=== PATIENT | male | born 1990 | race Hispanic/Latino ===

== ENCOUNTER 2018-02-16 07:56 | Emergency (ER) | payer BC ==
--- NOTE | 2018-02-16 09:07 | EDPHYS ---
Physician Documentation [facility] Name: Cintia Mahan Age: 27 yrs Sex: Male : 1990 Arrival Date: 02/16/2018 Time: 08:00 Bed 5 Private MD: None, None ED Physician Tye Bee HPI: 02/16 08:18 This 27 yrs old Male presents to ER via Ambulatory with complaints of Infected kb Finger. 08:18 the patient presents with a swollen area of the palmar aspect of distal phalanx of left kb middle finger. Description: swollen, warm. Onset: The symptoms/episode began/occurred today. Possible cause(s): got metal in his finger a couple of days ago. Associated signs and symptoms: Pertinent positives: swelling, Pertinent negatives: discharge, drainage, erythema, foreign body sensation, fever, headache, nausea, shortness of breath, vomiting. Modifying factors: the symptoms are alleviated by nothing, the symptoms are aggravated by pressure, touching. Severity of symptoms: At their worst the symptoms were mild, moderate, in the emergency department the symptoms are unchanged. The patient has not experienced similar symptoms in the past. The patient has not recently seen a physician. Pt reports he got a piece of metal stuck in his finger a few days ago. Thinks he got it all out, but woke up this morning with swelling and tenderness to the finger.. Historical: - Allergies: 08:09 No Known Allergies; hb - Home Meds: 08:09 None [Active]; hb - PMHx: 08:09 None; hb - PSHx: 08:09 None; hb - Immunization history:: Last tetanus immunization: up to date 2014. - Social history:: Smoking status: Patient/guardian denies using tobacco. ROS: 08:13 Constitutional: Negative for fever, chills, and weight loss, Cardiovascular: Negative kb for chest pain, palpitations, and edema, Respiratory: Negative for shortness of breath, cough, wheezing, and pleuritic chest pain, Abdomen/GI: Negative for abdominal pain, nausea, vomiting, diarrhea, and constipation, Neuro: Negative for headache, weakness, numbness, tingling, and seizure. 08:13 MS/extremity: Positive for injury or acute deformity, pain, puncture, swelling, tenderness, warmth, possible FB. Exam: 08:14 Constitutional: This is a well developed, well nourished patient who is awake, alert, kb and in no acute distress. Head/Face: Normocephalic, atraumatic. Chest/axilla: Normal chest wall appearance and motion. Nontender with no deformity. No lesions are appreciated. Cardiovascular: Regular rate and rhythm with a normal S1 and S2. No gallops, murmurs, or rubs. Normal PMI, no JVD. No pulse deficits. Respiratory: Lungs have equal breath sounds bilaterally, clear to auscultation and percussion. No rales, rhonchi or wheezes noted. No increased work of breathing, no retractions or nasal flaring. Abdomen/GI: Soft, non-tender, with normal bowel sounds. No distension or tympany. No guarding or rebound. No evidence of tenderness throughout. Neuro: Awake and alert, GCS 15, oriented to person, place, time, and situation. Cranial nerves II-XII grossly intact. Motor strength 5/5 in all extremities. Sensory grossly intact. Cerebellar exam normal. Normal gait. 08:14 Musculoskeletal/extremity: Extremities: grossly normal except: noted in the palmar aspect of distal phalanx of left middle finger: pain, swelling, tenderness, possible fb, puncture wound, ROM: intact in all extremities, Circulation is intact in all extremities. Sensation intact. Vital Signs: 08:07 BP 164 / 99; Pulse 56; Resp 16; Temp 97.9; Pulse Ox 100% on R/A; Pain 5/10; hb 09:00 BP 121 / 83; Pulse 55; Resp 16; Pulse Ox 100% on R/A; hb MDM: 08:03 Patient medically screened. kb 08:14 Data reviewed: vital signs, nurses notes. Data interpreted: Pulse oximetry: on room air kb is 100 %. Interpretation: normal. 09:06 Counseling: I had a detailed discussion with the patient and/or guardian regarding: the kb historical points, exam findings, and any diagnostic results supporting the discharge/admit diagnosis, radiology results, the need for outpatient follow up, a family practitioner, to return to the emergency department if symptoms worsen or persist or if there are any questions or concerns that arise at home. 02/16 08:06 Order name: Hand Left 3 View XRAY kb Administered Medications: No medications were administered Disposition: 04/28/18 09:07 Discharged to Home. Impression: Local infection of the skin and subcutaneous tissue, unspecified. - Condition is Stable. - Discharge Instructions: Wound Infection, [id number]. - Prescriptions for Keflex 500 mg Oral Capsule - take 1 capsule by ORAL route every 8 hours for 7 days; 21 capsule. - Medication Reconciliation Form, Thank You Letter, Antibiotic Education, Prescription Opioid Use form. - Follow up: Emergency Department; When: As needed; Reason: Worsening of condition. Follow up: Private Physician; When: 2 - 3 days; Reason: Recheck today's complaints, Continuance of care, Re-evaluation by your physician. Addendum: 02/18/2018 08:45 Co-signature as Attending Physician, Tye Bee MD I agree with the assessment and c aiken plan of care. Signatures: Dispatcher [employer] Dary Ricketts, CANVAS SHRINKER-C CANVAS SHRINKER-Ckb Tye Bee MD MD cha Baxter, Heather, RN RN
--- NOTE | 2018-02-16 09:07 | ER ---
Nurse's Notes [facility] Name: Cintia Mahan Age: 27 yrs Sex: Male : 1990 Arrival Date: 02/16/2018 Time: 08:00 Bed 5 Private MD: None, None Diagnosis: Local infection of the skin and subcutaneous tissue, unspecified Presentation: 02/16 08:07 Presenting complaint: Patient states: Left middle finger pad pain and swelling 5/10 hb after getting a piece of metal stuck in it 3 days ago. Transition of care: patient was not received from another setting of care. Onset of symptoms was February 16, 2018. Initial Sepsis Screen: Does the patient meet any 2 criteria? No. Patient's initial sepsis screen is negative. Does the patient have a suspected source of infection? No. Patient's initial sepsis screen is negative. Care prior to arrival: None. 08:07 Method Of Arrival: Ambulatory hb 08:07 Acuity: NOEL 4 hb Historical: - Allergies: 08:09 No Known Allergies; hb - Home Meds: 08:09 None [Active]; hb - PMHx: 08:09 None; hb - PSHx: 08:09 None; hb - Immunization history:: Last tetanus immunization: up to date 2014. - Social history:: Smoking status: Patient/guardian denies using tobacco. Screenin:09 Abuse screen: Denies threats or abuse. Denies injuries from another. Nutritional hb screening: No deficits noted. Tuberculosis screening: No symptoms or risk factors identified. Fall Risk None identified. Assessment: 08:06 General: Appears in no apparent distress. comfortable, well groomed, Behavior is calm, ae1 cooperative. Pain: Complains of pain in dorsal aspect of distal phalanx of left middle finger, palmar aspect of distal phalanx of left middle finger and left middle fingernail. Neuro: Level of Consciousness is awake, alert, obeys commands, Oriented to person, place, time, situation. Cardiovascular: Patient's skin is warm and dry. Respiratory: Airway is patent Respiratory effort is even, unlabored, Respiratory pattern is regular, symmetrical. GI: No signs and/or symptoms were reported involving the gastrointestinal system. : No signs and/or symptoms were reported regarding the genitourinary system. EENT: No signs and/or symptoms were reported regarding the EENT system. Derm: Wound noted dorsal aspect of distal phalanx of left middle finger, palmar aspect of distal phalanx of left middle finger and left middle fingernail Wound is Healing puncture wound the the left middle digit. Mild redness and surrounding swelling. Musculoskeletal: Swelling present in dorsal aspect of distal phalanx of left middle finger, palmar aspect of distal phalanx of left middle finger and left middle fingernail. 09:00 Reassessment: Patient appears in no apparent distress at this time. No changes from hb previously documented assessment. Patient and/or family updated on plan of care and expected duration. Pain level reassessed. Patient is alert, oriented x 3, equal unlabored respirations, skin warm/dry/pink. Vital Signs: 08:07 BP 164 / 99; Pulse 56; Resp 16; Temp 97.9; Pulse Ox 100% on R/A; Pain 5/10; hb 09:00 BP 121 / 83; Pulse 55; Resp 16; Pulse Ox 100% on R/A; hb ED Course: 08:00 Patient arrived in ED. mr 08:00 None, None is Private Physician. mr 08:03 [facility] Sandhu [facility]C [facility] kb 08:03 Tye Bee MD is Attending Physician. kb 08:04 Kian Dominguez, JULIANO is Primary Nurse. ae1 08:08 Triage completed. hb 08:08 Arm band placed on right wrist. hb 08:09 Bed in low position. Call light in reach. Patient is sitting in chair beside bed. Pulse ae1 ox on. NIBP on. 08:18 X-ray completed. Portable x-ray completed in exam room. kp1 08:19 Hand Left 3 View XRAY In Process Unspecified. EDMS 09:41 No provider procedures requiring assistance completed. Patient did not have IV access hb during this emergency room visit. Administered Medications: No medications were administered Outcome: 09:07 Discharge ordered by . kb 09:41 Discharged to home ambulatory. hb 09:41 Condition: stable 09:41 Discharge instructions given to patient, Instructed on discharge instructions, follow up and referral plans. medication usage, Demonstrated understanding of instructions, follow-up care, medications, Prescriptions given X 1. 09:43 Patient left the ED. hb Signatures: Dispatcher [employer] EDMS Dary Sandhu FNP-C FNP-Ckb Rivera, Maria mr Linda, Argelia, RN RN hb Kian Dominguez RN RN ae1 Mariana Caballero 1
--- NOTE | 2018-02-16 11:17 | RAD REPORT ---
EXAM DESCRIPTION: RAD - Hand Left 3 View - 02/16/2018 8:21 am CLINICAL HISTORY: Pain and swelling COMPARISON: None. FINDINGS: No fracture or dislocation seen. No radiopaque foreign body.
== END 2018-02-16 09:43 | disposition home or self-care (01) ==
LOC: ER 07:56
DX: L08.9 Local infection of the skin and subcutaneous tissue, unspecified (principal)
CPT/HCPCS: 99283